=== PATIENT | male | born 1960 | race Caucasian/White ===

== ENCOUNTER 2022-10-07 13:32 | Emergency (ER) | payer OTHER ==
[~2022-10-07] VITALS: Ht 172.7 cm; Wt 145.1 kg
[2022-10-07 13:40] VITALS: BP_SYST 166
[2022-10-07] MEDS ORDERED: MAGNESIUM SULFATE 50 ML IV ONE (14:15)
[2022-10-07 15:46] LABS: BASOPHILS % (AUTO) 0.6 % (0.0-2.0); EOSINOPHILS # (AUTO) 0.2 K/uL (0.0-0.4); EOSINOPHILS % (AUTO) 2.2 % (0.0-4.0); HEMATOCRIT 39.9 % (36-54); HEMOGLOBIN 12.6 g/dL (14.0-18.0); LYMPHOCYTES # (AUTO) 1.8 K/uL (1.0-5.5); LYMPHOCYTES % (AUTO) 23.4 % (20.5-51.5); MEAN CORPUSCULAR HEMOGLOBIN 29 pg (27-31); MEAN CORPUSCULAR HGB CONC 32 % (32-36); MEAN CORPUSCULAR VOLUME 92 fL (79.0-98.0); MONOCYTES # (AUTO) 0.7 K/uL (0.0-1.0); MONOCYTES % (AUTO) 9.9 % (1.7-9.3); NEUTROPHILS # (AUTO) 4.8 K/uL (1.8-7.7); NEUTROPHILS % (AUTO) 63.9 % (40.0-70.0); PLATELET COUNT (AUTO) 196 K/uL (130-430); RED BLOOD CELL COUNT(AUTO) 4.34 MIL/uL (4.2-6.2); RED CELL DISTRIBUTION WIDTH 16.4 % (9.0-15.0); WHITE BLOOD COUNT (AUTO) 7.6 K/uL (4.8-10.8)
[2022-10-07 15:47] LABS: CALCIUM 8.4 mg/dL (8.4-11.0); CHLORIDE 103 mmol/L (98-107); CREATININE 2.22 mg/dL (0.55-1.30); GLUCOSE 167 mg/dL (70-99); UREA NITROGEN, BLOOD 60 mg/dL (8-21)
[2022-10-07 15:54] LABS: ALANINE AMINOTRANSFERASE 42 U/L (12-78); ALBUMIN 3.2 g/dL (3.4-4.8); ASPARTATE AMINOTRANSFERASE 23 U/L (10-37); TOTAL BILIRUBIN 0.6 mg/dL (0.0-1.0)
[2022-10-07 15:57] LABS: ANION GAP < 3 (5-15); GFR AFRICAN AMERICAN 39 mL/min (>90)
[2022-10-07] MEDS ORDERED: SODIUM ZIRCONIUM CYCLOSILICATE 10 GM POWD.PACK PO ONE (17:00)
[2022-10-07] MEDS ORDERED: CALCIUM CHLORIDE 1 GM/10ML VIAL (13.6 mEq Ca++/VIAL) IV ONE (17:00)
[2022-10-07] MEDS ORDERED: D5/0.45 NS 1,000 ML IV ONE (17:30)
[2022-10-07] MEDS ORDERED: HYDR100T25 PO (17:46)
[2022-10-07] MEDS ORDERED: INSU100V SQ (17:46)
[2022-10-07] MEDS ORDERED: INSU100V9 SQ (17:46)
[2022-10-07] MEDS ORDERED: CYCL25CA PO (17:46)
[2022-10-07] MEDS ORDERED: LEVO125C4 PO (17:46)
[2022-10-07] MEDS ORDERED: MYCO180T3 PO (17:46)
[2022-10-07 18:00] VITALS: BP_SYST 179
[2022-10-07] MEDS ORDERED: ONDANSETRON HCL 4 MG/2 ML VIAL IVP PRN (20:45)
[2022-10-07] MEDS ORDERED: ACETAMINOPHEN 325 MG TABLET PO PRN (20:45)
[2022-10-07] MEDS ORDERED: HYDROcodone/ACETAMIN 10-325 MG TAB PO PRN (20:45)
[2022-10-07] MEDS ORDERED: NALOXONE HCL 0.4 MG/ML AMP (NARCAN) IVP PRN ×2 (20:45)
[2022-10-07] MEDS ORDERED: LORazepam 2 MG/ML VIAL IVP PRN (20:45)
[2022-10-07] MEDS ORDERED: HYDROcodone/ACETAMIN 5-325 MG TAB (NORCO/ VICODIN) PO PRN (20:45)
[2022-10-07] MEDS ORDERED: NON-FORMULARY MEDICATION (Mycophenolate Sodium (Mycophenolic Acid) 180 MG) PO SCH (21:00)
[2022-10-07] MEDS ORDERED: hydrALAZINE HCL 25 MG TABLET PO SCH (21:00)
[2022-10-07] MEDS ORDERED: INSULIN GLARGINE 100 UNITS/ML, 10 ML VIAL SQ SCH (21:00)
[2022-10-07] MEDS ORDERED: INSULIN Lispro 100 UNITS/ML, 3 ML VIAL (humaLOG) SQ SCH (21:00)
[2022-10-08] MEDS ORDERED: LEVOTHYROXINE SODIUM 0.125 MG TABLET PO SCH (07:00)
== END 2022-10-07 18:00 | disposition left against medical advice (07) ==
LOC: SED 13:32 → UNDOADMIN 17:00 → SMU 17:00
DX: E87.5 Hyperkalemia (principal); N17.9 Acute kidney failure, unspecified; E11.9 Type 2 diabetes mellitus without complications; I10 Essential (primary) hypertension; Z88.0 Allergy status to penicillin; Z88.1 Allergy status to other antibiotic agents; Z79.899 Other long term (current) drug therapy; Z20.822 Contact with and (suspected) exposure to COVID-19
CPT/HCPCS: 99285; 96365; 71045; 87426; 80053; 82962; 83880; 83735; 85025; 84484; 36415; 87804 ×2; J1815; J3475; 93005; G0378; J7515

== ENCOUNTER 2023-03-02 12:05 | Inpatient (IN) | payer OTHER ==
[~2023-03-02] VITALS: Ht 175.3 cm; Wt 152.0 kg
[~2023-03-02 12:05] MED LIST: CYCL25CA PO; HYDR100T25 PO; INSU100V SQ; INSU100V9 SQ; LEVO125C4 PO; MYCO180T3 PO
[2023-03-02 12:14] VITALS: BP_SYST 157; PULSE 85; RESP 22; TEMP 98.3; O2SAT 93
--- NOTE | 2023-03-02 12:15 | NUR ---
MD PENA AT BEDSIDE.
--- NOTE | 2023-03-02 12:16 | NUR ---
ASSUMED CARE OF A&OX 4 LETHARGIC PT WITH C/O 1 WEEK OF INCREASED SOB BUT IS NORMALLY ON 4L NC AND ABLE TO TOLERATE IT; PT HAS LARGE BILATERAL EXTREMITIES THAT HAVE HARDENED AND LUMPY SKIN WITH +4 PITTING EDEMA. PT HAS AN IRREGULARLY SHAPED ABDOMEN SOFT BUT OBESE ABDOMEN AND HAD KIDNEY TRANSPLANT 10 YEARS AGO AND HAS BEEN DIALYSIS FREE FOR THAT LENGTH OF TIME; + BRUIT AND THRILL TO [facility].
[2023-03-02] MEDS ORDERED: NALOXONE HCL 2 MG/2 ML SYR ONE (12:34)
[2023-03-02 12:40] LABS: BASOPHILS % (AUTO) 0.8 % (0.0-2.0); EOSINOPHILS # (AUTO) 0.1 K/uL (0.0-0.4); EOSINOPHILS % (AUTO) 2.2 % (0.0-4.0); HEMATOCRIT 36.2 % (36-54); HEMOGLOBIN 11.2 g/dL (14.0-18.0); LYMPHOCYTES # (AUTO) 2.1 K/uL (1.0-5.5); LYMPHOCYTES % (AUTO) 34.6 % (20.5-51.5); MEAN CORPUSCULAR HEMOGLOBIN 28 pg (27-31); MEAN CORPUSCULAR HGB CONC 31 % (32-36); MEAN CORPUSCULAR VOLUME 91 fL (79.0-98.0); MONOCYTES # (AUTO) 0.6 K/uL (0.0-1.0); MONOCYTES % (AUTO) 9.9 % (1.7-9.3); NEUTROPHILS # (AUTO) 3.2 K/uL (1.8-7.7); NEUTROPHILS % (AUTO) 52.5 % (40.0-70.0); PLATELET COUNT (AUTO) 176 K/uL (130-430); WHITE BLOOD COUNT (AUTO) 6.1 K/uL (4.8-10.8)
[2023-03-02 12:56] LABS: ANION GAP 1 (5-15); CALCIUM 8.4 mg/dL (8.4-11.0); CHLORIDE 100 mmol/L (98-107); CREATININE 1.53 mg/dL (0.55-1.30); GFR AFRICAN AMERICAN 59 mL/min (>90); GLUCOSE 194 mg/dL (74-106); UREA NITROGEN, BLOOD 31 mg/dL (8-21)
[2023-03-02 12:58] LABS: INR 1.1 (0.80-1.20); PROTHROMBIN TIME 11.6 SECS (9.5-12.5)
[2023-03-02 13:27] LABS: ALANINE AMINOTRANSFERASE 19 U/L (12-78); ALBUMIN 3.1 g/dL (3.4-4.8); ASPARTATE AMINOTRANSFERASE 21 U/L (10-37); TOTAL BILIRUBIN 1.1 mg/dL (0.0-1.0)
[2023-03-02] MEDS ORDERED: FUROSEMIDE 40 MG/4 ML VIAL IVP ONE (13:45)
[2023-03-02] MEDS ORDERED: ALPRAZolam 0.25 MG TABLET PO ONE (13:45)
--- NOTE | 2023-03-02 14:00 | NUR ---
PT REMAINS STABLE WITH AT BEDSIDE. PT'S SPO2 >92% ON 4L. PT PENDING RESULTS AND FURTHER ORDERS AT THIS TIME.
--- NOTE | 2023-03-02 14:24 | NUR ---
Admit bed requested Patient will be admitted to care of [Barb]. Admitted to [Tele] unit. Diagnosis [CHF,RENAL FAILURE] Inpatient (Yes or No) [Yes] Observation (Yes or No) [No] Orientation concerns or request close to nursing station (Yes or No) [No] Covid Status [n/a] On vent or bipap [n/a] Isolation requirements [n/a] Needs a sitter [n/a] From Home (Yes or if No enter name of facility) [yes] Requires Dialysis (Yes or No) [pt had dialysis 10 years ago] Med Rec Completed (Yes of No) [Yes]
--- NOTE | 2023-03-02 16:00 | NUR ---
PT PENDING TELE PLACEMENT AND HAS AMBULATED WITH ASSISTANCE TO THE BATHROOM WITH A STEADY GAIT TO VOID. NO C/O DYSURIA AND HEMATURIA. PT REMAINS TOLERATING 4L VIA NC.
[2023-03-02] MEDS ORDERED: METOPROLOL SUCCINATE 25 MG TAB.SR.24H (TOPROL XL) PO ONE (17:30)
--- NOTE | 2023-03-02 17:45 | NUR ---
RECEIVED A TORB FROM ADMITTING DR. CRUZ, FOR AN ABG. RT NOTIFIED. PT REMAINS STABLE ON 4L VIA NC WITH SP02 >92%
--- NOTE | 2023-03-02 18:38 | NUR ---
[facility] IN STABLE CONDITION.
--- NOTE | 2023-03-02 20:09 | NUR ---
RECEIVED PATIENT IN SHIFT REPORT
[2023-03-02 20:33] VITALS: BP_SYST 118; PULSE 82; RESP 19; TEMP 97.5; O2SAT 95
[2023-03-02 21:48] LABS: FREE T4 (FREE THYROXINE) 0.9 ng/dL (0.6-1.6); THYROID STIMULATING HORMONE 9.42 uIu/mL (0.34-4.82)
--- NOTE | 2023-03-02 21:48 | NUR ---
ALL ADMISSION CONSULTS HAVE BEEN PAGED ORDERED BY DR. BLANC
--- NOTE | 2023-03-02 22:00 | NUR ---
ULTRASOUND NOTED AT BEDSIDE
[2023-03-02] MEDS ORDERED: LORazepam 1 MG TABLET PO SCH (22:30)
[2023-03-02] MEDS ORDERED: LORazepam 1 MG TABLET PO PRN (22:45)
--- NOTE | 2023-03-02 23:28 | NUR ---
PATIENT CHOOSE TO LEAVE AMA AT THIS TIME, AMA FORM SIGNED, MD BLANC CALLED TO NOTIFY, AWAITING RETURN CALL
[2023-03-03] MEDS ORDERED: METOPROLOL SUCCINATE 25 MG TAB.SR.24H (TOPROL XL) PO SCH (09:00)
== END 2023-03-02 23:28 | disposition left against medical advice (07) | DRG 682 ==
LOC: SED 12:05 → STU 14:18
PROVIDERS: ADMIT Preventive Medicine Preventive Medicine/Occupational Environmental Medicine; ATTEND Preventive Medicine Preventive Medicine/Occupational Environmental Medicine
DX: N17.9 Acute kidney failure, unspecified (principal); I50.43 Acute on chronic combined systolic (congestive) and diastolic (congestive) heart failure; J96.21 Acute and chronic respiratory failure with hypoxia; J96.22 Acute and chronic respiratory failure with hypercapnia; Z68.42 Body mass index [BMI] 45.0-49.9, adult; I11.0 Hypertensive heart disease with heart failure; I45.10 Unspecified right bundle-branch block; E11.9 Type 2 diabetes mellitus without complications; E66.01 Morbid (severe) obesity due to excess calories; Z88.0 Allergy status to penicillin; Z88.8 Allergy status to other drugs, medicaments and biological substances; Z79.899 Other long term (current) drug therapy; Z79.4 Long term (current) use of insulin
CPT/HCPCS: 36415; 36600; 71045; 71250-TC; 76376; 80053; 82803; 83605; 83735; 83880; 84439; 84443; 84484; 85025; 85379; 85610-TC; 85730-TC; 93005; 93970; 96374; 99285; G0378; J1940; J2310